=== PATIENT | male | born 1990 | race Caucasian/White ===

== ENCOUNTER 2017-04-10 16:39 | Emergency (ER) | payer OTHER ==
[2017-04-10] MEDS ORDERED: SODIUM CHLORIDE 0.9% 1,000 ML IV STA (17:44)
--- NOTE | 2017-04-10 17:52 | ED ---
General Adult HPI - General Chief complaint: Neuro Symptoms/Deficit Stated complaint: Tingling in face, arm, hand. SOB Time Seen by Provider: 04/10/17 17:14 Source: patient, family, RN notes reviewed Mode of arrival: wheelchair Limitations: no limitations - History of Present Illness Initial comments: Chief complaint and history of present illness this is a healthy 26-year-old male who was finishing a delivery when he started feeling hot with sweats slightly short of breath and started having tingling around his lips and muscle contractions in left hand. Patient also describes discomfort to the left flank around toward the right lower abdomen. Denies any change in urine denies ever having had a kidney stone the past. But this was going on the same time that he had cold sweats and tingling to his lips and hands Patient's feeling better at this time. Denies ever having had anxiety or panic attacks in the past has not think he has any issues that might cause it. - Related Data Home Medications Medication Instructions Recorded Confirmed No Known Home Medications [No 08/12/16 04/10/17 Known Home Medications] Allergies Allergy/AdvReac Type Severity Reaction Status Date / Time No Known Allergies Allergy Verified 04/10/17 17:17 Review of Systems ROS Statement: Those systems with pertinent positive or pertinent negative responses have been documented in the HPI. Review of systems no headache or visual acuity changes no chest pain or shortness of breath this time he still has mild discomfort in the left lower quadrant. No nausea no vomiting. No sweats this time no chest pain or shortness of breath. No neuro deficits. All systems are reviewed. Past medical problems none surgeries none. Family history no sudden . He denies any ALLERGIES nonsmoker drinks alcohol rarely socially. Been on the job for 4 years nothing needs strenuous. ROS Other: All systems not noted in ROS Statement are negative. Past Medical History Past Medical History: No Reported History History of Any Multi-Drug Resistant Organisms: None Reported Past Surgical History: No Surgical Hx Reported Past Psychological History: No Psychological Hx Reported Smoking Status: Never smoker Past Alcohol Use History: Occasional Past Drug Use History: None Reported General Exam - General Exam Comments Initial Comments: General: The patient is awake and alert, in no distress, and does not appear acutely ill. Patient had an episode of being sweaty and discomfort to his left flank to left lower quadrant. Also short episode of hyperventilation with tingling around his lips and hands. Eye: Pupils are equal, round and reactive to light, extra-ocular movements are intact ; there is normal conjunctiva bilaterally. No signs of icterus. Ears, nose, mouth and throat: There are moist mucous membranes and no oral lesions. Neck: The neck is supple, there is no tenderness . Cardiovascular: There is a regular rate and rhythm. No murmur, rub or gallop is appreciated. Respiratory: Lungs are clear to auscultation, respirations are non-labored, breath sounds are equal. No wheezes, stridor, rales, or rhonchi. Gastrointestinal: Soft, non-distended, non-tender abdomen without masses or organomegaly noted. There is no rebound or guarding present. No CVA tenderness. Bowel sounds are unremarkable. Back: There is no tenderness to palpation in the midline. There is no obvious deformity. No rashes noted. No pain with kidney punch is Musculoskeletal: Normal ROM, no tenderness, There is no pedal edema. There is no calf tenderness or swelling. Sensation intact. Pulses equal bilaterally 2+. Neurological: No neuro deficits Skin: Skin is warm and dry and no rashes or lesions are noted. Limitations: no limitations Course Vital Signs 04/10/17 04/10/17 04/10/17 16:47 17:17 18:54 Temperature 96.9 F L 96.8 F L 97.8 F Pulse Rate 71 65 60 Respiratory 16 18 17 Rate Blood Pressure 132/66 150/74 139/74 O2 Sat by Pulse 100 99 100 Oximetry EKG Findings - EKG Comments: EKG Findings:: EKG was done and reviewed at 1803 showing normal sinus rhythm no acute ST elevation no ectopy no ischemic changes. Rate 63 VT interval is 144 QRS [address] QT [address] Marie Medical Decision Making - Medical Decision Making labs show a white count of 8.1 hemoglobin 15.8 hematocrit of 46, potassium 3.8 BUN 15 creatinine 0.85 a GFR greater than 60. Urine clean no signs of blood or infection. Chest x-ray is done AP and lateral view and reviewed by radiologist his impression is heart and mediastinum are normal. Lungs are clear. Diaphragm is normal. Bony thorax appears normal. Impression normal chest. As read by Dr. David We discussed anxiety and panic attacks and hyperventilation syndrome. Chest panic and anxiety. The patient feels good now nono pain no shortness of breath neurologically intact. We discharged home to with his difficulty another. Advised to follow-up with his family physician in his town. Return emergency room as needed - Lab Data Result diagrams: 04/10/17 18:10 04/10/17 18:10 Lab Results 04/10/17 04/10/17 04/10/17 Range/Units 18:10 18:10 18:10 WBC 8.1 (3.8-10.6) k/uL RBC 5.36 (4.30-5.90) m/uL Hgb 15.8 (13.0-17.5) gm/dL Hct 46.5 (39.0-53.0) % MCV 86.7 (80.0-100.0) fL MCH 29.5 (25.0-35.0) pg MCHC 34.0 (31.0-37.0) g/dL RDW 13.3 (11.5-15.5) % Plt Count 267 (150-450) k/uL Neutrophils % 70 % Lymphocytes % 21 % Monocytes % 5 % Eosinophils % 1 % Basophils % 0 % Neutrophils # 5.7 (1.3-7.7) k/uL Lymphocytes # 1.7 (1.0-4.8) k/uL Monocytes # 0.4 (0-1.0) k/uL Eosinophils # 0.1 (0-0.7) k/uL Basophils # 0.0 (0-0.2) k/uL Sodium 142 (137-145) mmol/L Potassium 3.8 (3.5-5.1) mmol/L Chloride 104 (98-107) mmol/L Carbon Dioxide 25 (22-30) mmol/L Anion Gap 13 mmol/L BUN 15 (9-20) mg/dL Creatinine 0.85 (0.66-1.25) mg/dL Est GFR (MDRD) Af Amer >60 (>60 ml/min/1.73 sqM) Est GFR (MDRD) Non-Af >60 (>60 ml/min/1.73 sqM) Glucose 91 (74-99) mg/dL Calcium 9.6 (8.4-10.2) mg/dL Total Bilirubin 0.8 (0.2-1.3) mg/dL AST 29 (17-59) U/L ALT 29 (21-72) U/L Alkaline Phosphatase 71 (38-126) U/L Troponin I <0.012 (0.000-0.034) ng/mL Total Protein 8.0 (6.3-8.2) g/dL Albumin 5.0 (3.5-5.0) g/dL Urine Color Urine Appearance (Clear) Urine pH (5.0-8.0) Ur Specific [place] (1.001-1.035) Urine Protein (Negative) Urine Glucose (UA) (Negative) Urine Ketones (Negative) Urine Blood (Negative) Urine Nitrite (Negative) Urine Bilirubin (Negative) Urine Urobilinogen (<2.0) mg/dL Ur Leukocyte Esterase (Negative) 04/10/17 Range/Units 18:10 WBC (3.8-10.6) k/uL RBC (4.30-5.90) m/uL Hgb (13.0-17.5) gm/dL Hct (39.0-53.0) % MCV (80.0-100.0) fL MCH (25.0-35.0) pg MCHC (31.0-37.0) g/dL RDW (11.5-15.5) % Plt Count (150-450) k/uL Neutrophils % % Lymphocytes % % Monocytes % % Eosinophils % % Basophils % % Neutrophils # (1.3-7.7) k/uL Lymphocytes # (1.0-4.8) k/uL Monocytes # (0-1.0) k/uL Eosinophils # (0-0.7) k/uL Basophils # (0-0.2) k/uL Sodium (137-145) mmol/L Potassium (3.5-5.1) mmol/L Chloride (98-107) mmol/L Carbon Dioxide (22-30) mmol/L Anion Gap mmol/L BUN (9-20) mg/dL Creatinine (0.66-1.25) mg/dL Est GFR (MDRD) Af Amer (>60 ml/min/1.73 sqM) Est GFR (MDRD) Non-Af (>60 ml/min/1.73 sqM) Glucose (74-99) mg/dL Calcium (8.4-10.2) mg/dL Total Bilirubin (0.2-1.3) mg/dL AST (17-59) U/L ALT (21-72) U/L Alkaline Phosphatase (38-126) U/L Troponin I (0.000-0.034) ng/mL Total Protein (6.3-8.2) g/dL Albumin (3.5-5.0) g/dL Urine Color Yellow Urine Appearance Clear (Clear) Urine pH 7.0 (5.0-8.0) Ur Specific [place] 1.023 (1.001-1.035) Urine Protein Negative (Negative) Urine Glucose (UA) Negative (Negative) Urine Ketones Negative (Negative) Urine Blood Negative (Negative) Urine Nitrite Negative (Negative) Urine Bilirubin Negative (Negative) Urine Urobilinogen <2.0 (<2.0) mg/dL Ur Leukocyte Esterase Negative (Negative) Disposition Clinical Impression: Panic anxiety syndrome Disposition: HOME SELF-CARE Condition: Good Instructions: Panic Attack (ED) Additional Instructions: Rest relax follow directions for panic attack. Follow-up with your family physician or follow-up with a physician in the community. On-call physician is Dr. Rock Moody Referrals: None,Stated [Primary Care Provider] - 1-2 days Rock Moody MD [STAFF PHYSICIAN] - 1-2 days Time of Disposition: 19:57
[2017-04-10 18:26] LABS: ALT 29 U/L (21-72); AST 29 U/L (17-59); Alkaline Phosphatase 71 U/L (38-126); Anion Gap 13 mmol/L; Appearance,Urine Clear (Clear); Basophils % (A) 0 %; Bilirubin,Urine Negative (Negative); Blood Urea Nitrogen 15 mg/dL (9-20); CH 30.8; CHCM 35.6; Calcium 9.6 mg/dL (8.4-10.2); Carbon Dioxide 25 mmol/L (22-30); Chloride 104 mmol/L (98-107); Eosinophils # (A) 0.1 k/uL (0-0.7); Eosinophils % (A) 1 %; Glucose 91 mg/dL (74-99); Glucose,Urine (UA) Negative (Negative); HCT 46.5 % (39.0-53.0); HDW 2.52; HGB 15.8 gm/dL (13.0-17.5); Ketones,Urine Negative (Negative); Leukocyte Esterase,Urine Negative (Negative); Luc # (Auto) 0.17; Luc % (Auto) 2; Lymphocytes # (A) 1.7 k/uL (1.0-4.8); Lymphocytes % (A) 21 %; MCH 29.5 pg (25.0-35.0); MCV 86.7 fL (80.0-100.0); Mean Platelet Volume 6.7; Monocytes # (A) 0.4 k/uL (0-1.0); Monocytes % (A) 5 %; Neutrophils # (A) 5.7 k/uL (1.3-7.7); Neutrophils % (A) 70 %; Nitrite,Urine Negative (Negative); Non-African American GFR(MDRD) >60 (>60 ml/min/1.73 sqM); Potassium 3.8 mmol/L (3.5-5.1); Protein,Urine Negative (Negative); RBC 5.36 m/uL (4.30-5.90); RDW 13.3 % (11.5-15.5); Sodium 142 mmol/L (137-145); Specific Gravity,Urine 1.023 (1.001-1.035); Total Bilirubin 0.8 mg/dL (0.2-1.3); UA Billing (MACRO vs. MICRO) CHEM; Urobilinogen,Urine <2.0 mg/dL (<2.0); WBC 8.1 k/uL (3.8-10.6); WBC (Perox) 7.97
--- NOTE | 2017-04-10 18:43 | XR ---
EXAMINATION TYPE: XR chest 2V DATE OF EXAM: 04/10/2017 COMPARISON: NONE HISTORY: Short of breath TECHNIQUE: Frontal and lateral views of the chest are obtained. FINDINGS: Heart and mediastinum are normal. Lungs are clear. Diaphragm is normal. Bony thorax appear s normal. IMPRESSION: Normal chest
[2017-04-10 20:08] VITALS: BP 137/61; PULSE 69; RESP 16; TEMP 97.6
== END 2017-04-10 20:08 | disposition home or self-care (01) ==
LOC: EC 16:39
DX: F41.0 Panic disorder [episodic paroxysmal anxiety] (principal); R06.02 Shortness of breath; R20.0 Anesthesia of skin
CPT/HCPCS: 36415; 71020; 80053; 81003; 84484; 85025; 93005; 96360; 99284

== ENCOUNTER 2017-06-05 06:37 | Emergency (ER) | payer SELFPAY ==
[2017-06-05] MEDS ORDERED: PROPARACAINE 0.5% OPHTH DROPS 15 ML BTL ONE (07:33)
--- NOTE | 2017-06-05 07:43 | ED ---
ENT HPI - General Chief complaint: ENT Stated complaint: Eye issue Time Seen by Provider: 06/05/17 07:00 Source: patient, RN notes reviewed Mode of arrival: ambulatory Limitations: no limitations - History of Present Illness Initial comments: This is a 27-year-old male with a benign past medical history states he had answered 190 of some irritation in his right eye he woke up this morning with a crusted shut and red in color. He denies any overt foreign body or trauma he did state he went camping over this past week and today being Sunday. He does not recall getting anything in the eye. He does not wear contact lenses he denies any blurry vision or loss of vision. Just irritation and redness and clear drainage. He's not sure since he may be underneath his upper eyelid. He voices no other complaints - Related Data Home Medications Medication Instructions Recorded Confirmed Glucosamine Sulfate 500 mg PO DAILY 06/05/17 06/05/17 Previous Rx's Medication Instructions Recorded Tobramycin [Tobrex 0.3% Ophth Soln] 2 drop RIGHT EYE Q6HR #5 ml 06/05/17 Allergies Allergy/AdvReac Type Severity Reaction Status Date / Time No Known Allergies Allergy Verified 06/05/17 07:33 Review of Systems ROS Statement: Those systems with pertinent positive or pertinent negative responses have been documented in the HPI. ROS Other: All systems not noted in ROS Statement are negative. Past Medical History Past Medical History: No Reported History History of Any Multi-Drug Resistant Organisms: None Reported Past Surgical History: No Surgical Hx Reported Past Psychological History: No Psychological Hx Reported Smoking Status: Never smoker Past Alcohol Use History: Occasional Past Drug Use History: None Reported General Exam - General Exam Comments Initial Comments: This is a well-developed well-nourished awake alert oriented 3 male Limitations: no limitations General appearance: alert, in no apparent distress Head exam: Present: atraumatic, normocephalic, normal inspection Eye exam: Present: PERRL, EOMI, conjunctival injection (Conjunctival injection and edema eversion of the eyelids on gross examination reveals no evidence of foreign body just some edema. Left eye is within normal limits.) Pupils: Present: normal accommodation ENT exam: Present: normal exam, mucous membranes moist Neck exam: Present: normal inspection. Absent: tenderness, meningismus, lymphadenopathy Respiratory exam: Absent: respiratory distress Extremities exam: Present: normal inspection, full ROM, normal capillary refill. Absent: tenderness, pedal edema, joint swelling, calf tenderness Neurological exam: Present: alert, oriented X3, CN II-XII intact Psychiatric exam: Present: normal affect, normal mood Skin exam: Present: warm, dry, intact, normal color. Absent: rash Course Vital Signs 06/05/17 06:41 Temperature 97.8 F Pulse Rate 71 Respiratory 16 Rate Blood Pressure 116/69 O2 Sat by Pulse 99 Oximetry Procedures - Procedures Initial comment: I did instill proparacaine drops in the patient's right eye and then later instilled fluorescein. I did examine the eye with a Wood lamp. Examination reveals increased uptake over the conjunctiva the cornea is clear U version the eyelids reveal no evidence of any foreign bodies either upper or lower. No other abnormality seen. Medical Decision Making - Medical Decision Making The patient presentation is consistent with keratoconjunctivitis. He'll be placed on appropriate antibiotic drops he does not wear contact lenses he was cautioned about bright lights. He is follow-up with his doctor and return when necessary Disposition Clinical Impression: Acute conjunctivitis, right eye Disposition: HOME SELF-CARE Condition: Good Instructions: Conjunctivitis (ED) Prescriptions: Tobramycin [Tobrex 0.3% Ophth Soln] 2 drop RIGHT EYE Q6HR #5 ml Referrals: None,Stated [Primary Care Provider] - 1-2 days
[2017-06-05] MEDS ORDERED: PROPARACAINE 0.5% OPHTH DROPS 15 ML BTL RIGHT EYE STA (07:49)
[2017-06-05 08:22] VITALS: BP 136/72; PULSE 62; RESP 20; TEMP 98.7
== END 2017-06-05 08:22 | disposition home or self-care (01) ==
LOC: EC 06:37
DX: H10.31 Unspecified acute conjunctivitis, right eye (principal); Z79.899 Other long term (current) drug therapy
CPT/HCPCS: 99283

== ENCOUNTER 2018-02-02 17:03 | Emergency (ER) | payer OTHER ==
[2018-02-02 17:10] VITALS: RESP 16
--- NOTE | 2018-02-02 17:32 | ED ---
General Adult HPI - General Chief complaint: Dizziness Stated complaint: MYRIAM Time Seen by Provider: 02/02/18 17:07 Source: patient Mode of arrival: EMS Limitations: no limitations - History of Present Illness Initial comments: 27-year-old male patient presents to the emergency department today for evaluation after what he describes as an "anxiety attack". Patient states that approximately an hour prior to arrival he was driving when he had sudden onset of shortness of breath. Patient states that he was breathing heavy and fast. States that during the breathing episode the right side of his face her to become tingly, his left arm is tingling, and his legs were tingling. Patient states he has had a similar episode to this a couple of years ago. States he was diagnosed with anxiety at that point. Patient states he does not have much problems with this. States this episode came out of nowhere. He denies any recent stressors or feelings of anxiousness. Patient states he currently is feeling normal. He denies any shortness of breath, chest pain, dizziness, weakness, headache, blurred vision, or double vision. Patient denies any recent rash, fever, chills, abdominal pain, nausea, vomiting, diarrhea, constipation, back pain, hematuria, dysuria, urinary urgency, urinary frequency, headache, visual changes, or any other complaints. Patient states he occasionally smokes marijuana and drinks alcohol but denies any use of these substances today. - Related Data Home Medications Medication Instructions Recorded Confirmed Glucosamine Sulfate 500 mg PO DAILY 06/05/17 06/05/17 Previous Rx's Medication Instructions Recorded Tobramycin [Tobrex 0.3% Ophth Soln] 2 drop RIGHT EYE Q6HR #5 ml 06/05/17 Allergies Allergy/AdvReac Type Severity Reaction Status Date / Time No Known Allergies Allergy Verified 02/02/18 17:09 Review of Systems ROS Statement: Those systems with pertinent positive or pertinent negative responses have been documented in the HPI. ROS Other: All systems not noted in ROS Statement are negative. Past Medical History Past Medical History: No Reported History History of Any Multi-Drug Resistant Organisms: None Reported Past Surgical History: No Surgical Hx Reported Past Psychological History: No Psychological Hx Reported Smoking Status: Never smoker Past Alcohol Use History: Occasional Past Drug Use History: Marijuana General Exam Limitations: no limitations General appearance: alert, in no apparent distress, other (This is a well- developed, well-nourished adult male patient in no acute distress. Vital signs upon presentation are temperature 96.9F, pulse 69, respirations 16, blood pressure 125/73, pulse ox 100% on room air.) Eye exam: Present: normal appearance, PERRL, EOMI. Absent: scleral icterus, conjunctival injection, periorbital swelling ENT exam: Present: normal exam, normal oropharynx, mucous membranes moist Respiratory exam: Present: normal lung sounds bilaterally. Absent: respiratory distress, wheezes, rales, rhonchi, stridor Cardiovascular Exam: Present: regular rate, normal rhythm, normal heart sounds. Absent: systolic murmur, diastolic murmur, rubs, gallop, clicks GI/Abdominal exam: Present: soft, normal bowel sounds. Absent: distended, tenderness, guarding, rebound, rigid Neurological exam: Present: alert, oriented X3, CN II-XII intact Psychiatric exam: Present: normal affect, normal mood Skin exam: Present: warm, dry, intact, normal color. Absent: rash Course Vital Signs 02/02/18 02/02/18 17:05 18:11 Temperature 96.9 F L 97.9 F Pulse Rate 69 78 Respiratory 16 16 Rate Blood Pressure 125/73 126/68 O2 Sat by Pulse 100 99 Oximetry EKG Findings - EKG Comments: EKG Findings:: EKG obtained at 1743 shows normal sinus rhythm with a ventricular rate of 61, MO interval 138, QRS duration 92, QT 404, QTC 406. No evidence of ST elevation or depression. No evidence of ectopy. Medical Decision Making - Medical Decision Making 27-year-old male patient presented to the emergency department today for evaluation of what sounded like hyperventilation with left hand and arm tingling and hand contractions as well as bilateral lower extremity tingling and right facial tingling. Upon arrival to the emergency department all symptoms are resolved. Patient states he is currently feeling normal. Did perform EKG which showed no acute abnormalities. Chest x-ray showed no acute cardiopulmonary process. Patient was recently been diagnosed with panic attacks did have a similar episode once in the past. Patient does feel comfortable being discharged at this time. He was given that Dr. Tucker to follow-up outpatient for primary care. He is instructed to return here immediately for any new, worsening, or concerning symptoms. Return parameters discussed in detail. He verbalizes understanding and agrees this plan. - Radiology Data Radiology results: report reviewed, image reviewed Two-view x-ray of the chest shows no focal airspace opacity, pleural effusion, or pneumothorax seen. The cardiac silhouette size is within normal limits. The osseous structures are intact. Impression by Dr. Arias shows no acute cardiopulmonary process. Disposition Clinical Impression: Shortness of breath, Anxiety Disposition: HOME SELF-CARE Condition: Good Instructions: Dyspnea (ED), Anxiety (ED) Additional Instructions: Follow-up with the primary care physician as soon as possible. Return here immediately for any new, worsening, or concerning symptoms. Referrals: Vivien Tucker MD [STAFF PHYSICIAN] - 1-2 days Time of Disposition: 17:55
--- NOTE | 2018-02-02 17:48 | XR ---
EXAMINATION TYPE: XR chest 2V DATE OF EXAM: 02/02/2018 COMPARISON: Prior chest 04/10/2017 HISTORY: Difficulty breathing TECHNIQUE: Frontal and lateral views of the chest are obtained on 3 images. FINDINGS: There is no focal air space opacity, pleural effusion, or pneumothorax seen. The cardiac silhouette size is within normal limits. The osseous structures are intact. IMPRESSION: No acute cardiopulmonary process.
[2018-02-02 18:11] VITALS: BP 126/68; PULSE 78; TEMP 97.9
== END 2018-02-02 18:11 | disposition home or self-care (01) ==
LOC: EC 17:03
DX: F41.9 Anxiety disorder, unspecified (principal); R06.02 Shortness of breath; F12.90 Cannabis use, unspecified, uncomplicated; Z79.899 Other long term (current) drug therapy
CPT/HCPCS: 71046; 93005; 99284

== ENCOUNTER 2018-04-08 13:57 | Observation (INO) | payer OTHER ==
[2018-04-08] MEDS ORDERED: SODIUM CHLORIDE 0.9% 1,000 ML IV STA (14:42)
--- NOTE | 2018-04-08 14:57 | XR ---
EXAMINATION TYPE: XR KUB DATE OF EXAM: 04/08/2018 CLINICAL DATA: 27-year-old male with abdominal pain, [facility] COMPARISON: None FINDINGS: Lung bases are clear. No evidence for free intraperitoneal air. No dilated small bowel or air-fluid levels. Scattered air and stool seen throughout the colon extendi ng distally into the rectum. Very mild scattered stool Calcification in the lower left side of the pelvis likely phlebolith. IMPRESSION: No evidence of bowel obstruction or free intraperitoneal air.
--- NOTE | 2018-04-08 14:58 | ED ---
General Adult HPI - General Chief complaint: Abdominal Pain Stated complaint: Abd Pain Time Seen by Provider: 04/08/18 14:21 Source: patient, RN notes reviewed Mode of arrival: ambulatory Limitations: no limitations - History of Present Illness Initial comments: Patient 27-year-old male presents to the emergency room today with chief complaint of right-sided abdominal pain over the last 2-3 days. Patient describes it as sharp constant pain. He states he was thought could be some constipation has taken a laxative percent. No bowel movement and no relief of the pain and symptoms. Patient denies any other complaints. Patient denies any recent fever, chills, shortness of breath, chest pain, back pain, numbness or tingling, dysuria or hematuria, constipation or diarrhea, headaches or visual changes, or any other complaints. - Related Data Home Medications Medication Instructions Recorded Confirmed Sennosides [Ex-Lax] 15 mg PO HS PRN 04/08/18 04/08/18 Allergies Allergy/AdvReac Type Severity Reaction Status Date / Time No Known Allergies Allergy Verified 04/08/18 14:17 Review of Systems ROS Statement: Those systems with pertinent positive or pertinent negative responses have been documented in the HPI. ROS Other: All systems not noted in ROS Statement are negative. Past Medical History Past Medical History: No Reported History History of Any Multi-Drug Resistant Organisms: None Reported Past Surgical History: No Surgical Hx Reported Past Psychological History: No Psychological Hx Reported Smoking Status: Never smoker Past Alcohol Use History: Occasional Past Drug Use History: Marijuana General Exam - General Exam Comments Initial Comments: General: The patient is awake and alert, in no distress, and does not appear acutely ill. Eye: Pupils are equal, round and reactive to light, extra-ocular movements are intact. No nystagmus. There is normal conjunctiva bilaterally. No signs of icterus. Ears, nose, mouth and throat: There are moist mucous membranes and no oral lesions. Neck: The neck is supple, there is no tenderness or JVD. Cardiovascular: There is a regular rate and rhythm. No murmur, rub or gallop is appreciated. Respiratory: Lungs are clear to auscultation, respirations are non-labored, breath sounds are equal. No wheezes, stridor, rales, or rhonchi. Gastrointestinal: Abdomen soft on palpation. Patient does have tenderness right lower quadrant. No rebound tenderness, guarding, CVA tenderness. Musculoskeletal: Normal ROM, no tenderness. Strength 5/5. Sensation intact. Pulses equal bilaterally 2+. Neurological: A&O x 3. CN II-XII intact, There are no obvious motor or sensory deficits. Coordination appears grossly intact. Speech is normal. Skin: Skin is warm and dry and no rashes or lesions are noted. Psychiatric: Cooperative, appropriate mood & affect, normal judgment. Limitations: no limitations Course Vital Signs 04/08/18 04/08/18 14:09 16:21 Temperature 97.6 F Pulse Rate 68 65 Respiratory 20 18 Rate Blood Pressure 114/74 104/56 O2 Sat by Pulse 98 99 Oximetry Medical Decision Making - Medical Decision Making Patient discussed with attending physician Dr. Mcnulty. Patient's CT of the abdomen and pelvis does reveal evidence for an early appendicitis. Case discussed with surgeon station mechanic helper Dr. Jauregui who recommends starting patient on Rocephin and Flagyl and will admit the patient with plans to go to the OR. - Lab Data Result diagrams: 04/08/18 14:52 04/08/18 14:52 Lab Results 04/08/18 04/08/18 04/08/18 Range/Units 14:52 14:52 14:52 WBC 6.5 (3.8-10.6) k/uL RBC 4.85 (4.30-5.90) m/uL Hgb 14.3 (13.0-17.5) gm/dL Hct 40.8 (39.0-53.0) % MCV 84.1 (80.0-100.0) fL MCH 29.6 (25.0-35.0) pg MCHC 35.2 (31.0-37.0) g/dL RDW 13.1 (11.5-15.5) % Plt Count 219 (150-450) k/uL Neutrophils % 59 % Lymphocytes % 31 % Monocytes % 5 % Eosinophils % 3 % Basophils % 0 % Neutrophils # 3.8 (1.3-7.7) k/uL Lymphocytes # 2.0 (1.0-4.8) k/uL Monocytes # 0.3 (0-1.0) k/uL Eosinophils # 0.2 (0-0.7) k/uL Basophils # 0.0 (0-0.2) k/uL Sodium 142 (137-145) mmol/L Potassium 4.3 (3.5-5.1) mmol/L Chloride 103 (98-107) mmol/L Carbon Dioxide 26 (22-30) mmol/L Anion Gap 13 mmol/L BUN 17 (9-20) mg/dL Creatinine 0.85 (0.66-1.25) mg/dL Est GFR (CKD-EPI)AfAm >90 (>60 ml/min/1.73 sqM) Est GFR (CKD-EPI)NonAf >90 (>60 ml/min/1.73 sqM) Glucose 90 (74-99) mg/dL Plasma Lactic Acid Bhargav <0.5 L (0.7-2.0) mmol/L Calcium 9.1 (8.4-10.2) mg/dL Total Bilirubin 0.8 (0.2-1.3) mg/dL AST 21 (17-59) U/L ALT 31 (21-72) U/L Alkaline Phosphatase 50 (38-126) U/L Total Protein 7.0 (6.3-8.2) g/dL Albumin 4.5 (3.5-5.0) g/dL Amylase 35 (30-110) U/L Lipase 32 (23-300) U/L Urine Color Urine Appearance (Clear) Urine pH (5.0-8.0) Ur Specific [place] (1.001-1.035) Urine Protein (Negative) Urine Glucose (UA) (Negative) Urine Ketones (Negative) Urine Blood (Negative) Urine Nitrite (Negative) Urine Bilirubin (Negative) Urine Urobilinogen (<2.0) mg/dL Ur Leukocyte Esterase (Negative) Urine RBC (0-5) /hpf Urine WBC (0-5) /hpf Ur Squamous Epith Cells (0-4) /hpf 04/08/18 Range/Units 14:52 WBC (3.8-10.6) k/uL RBC (4.30-5.90) m/uL Hgb (13.0-17.5) gm/dL Hct (39.0-53.0) % MCV (80.0-100.0) fL MCH (25.0-35.0) pg MCHC (31.0-37.0) g/dL RDW (11.5-15.5) % Plt Count (150-450) k/uL Neutrophils % % Lymphocytes % % Monocytes % % Eosinophils % % Basophils % % Neutrophils # (1.3-7.7) k/uL Lymphocytes # (1.0-4.8) k/uL Monocytes # (0-1.0) k/uL Eosinophils # (0-0.7) k/uL Basophils # (0-0.2) k/uL Sodium (137-145) mmol/L Potassium (3.5-5.1) mmol/L Chloride (98-107) mmol/L Carbon Dioxide (22-30) mmol/L Anion Gap mmol/L BUN (9-20) mg/dL Creatinine (0.66-1.25) mg/dL Est GFR (CKD-EPI)AfAm (>60 ml/min/1.73 sqM) Est GFR (CKD-EPI)NonAf (>60 ml/min/1.73 sqM) Glucose (74-99) mg/dL Plasma Lactic Acid Bhargav (0.7-2.0) mmol/L Calcium (8.4-10.2) mg/dL Total Bilirubin (0.2-1.3) mg/dL AST (17-59) U/L ALT (21-72) U/L Alkaline Phosphatase (38-126) U/L Total Protein (6.3-8.2) g/dL Albumin (3.5-5.0) g/dL Amylase (30-110) U/L Lipase (23-300) U/L Urine Color Yellow Urine Appearance Clear (Clear) Urine pH 5.5 (5.0-8.0) Ur Specific [place] 1.025 (1.001-1.035) Urine Protein Negative (Negative) Urine Glucose (UA) Negative (Negative) Urine Ketones Negative (Negative) Urine Blood Negative (Negative) Urine Nitrite Negative (Negative) Urine Bilirubin Negative (Negative) Urine Urobilinogen <2.0 (<2.0) mg/dL Ur Leukocyte Esterase Moderate H (Negative) Urine RBC 2 (0-5) /hpf Urine WBC 8 H (0-5) /hpf Ur Squamous Epith Cells 1 (0-4) /hpf Disposition Clinical Impression: Acute appendicitis Disposition: ADMITTED IP TO THIS [facility] Condition: Stable Is patient prescribed a controlled substance at d/c from ED?: No Referrals: None,Stated [Primary Care Provider] - 1-2 days Time of Disposition: 16:35
[2018-04-08 15:26] LABS: Basophils % (A) 0 %; Eosinophils # (A) 0.2 k/uL (0-0.7); Eosinophils % (A) 3 %; HCT 40.8 % (39.0-53.0); HGB 14.3 gm/dL (13.0-17.5); Lymphocytes % (A) 31 %; MCH 29.6 pg (25.0-35.0); MCHC 35.2 g/dL (31.0-37.0); MCV 84.1 fL (80.0-100.0); Mean Platelet Volume 6.7; Monocytes # (A) 0.3 k/uL (0-1.0); Monocytes % (A) 5 %; Neutrophils # (A) 3.8 k/uL (1.3-7.7); Neutrophils % (A) 59 %; Platelet Count 219 k/uL (150-450); RBC 4.85 m/uL (4.30-5.90); RDW 13.1 % (11.5-15.5); WBC 6.5 k/uL (3.8-10.6)
[2018-04-08 15:28] LABS: ALT 31 U/L (21-72); AST 21 U/L (17-59); Albumin 4.5 g/dL (3.5-5.0); Alkaline Phosphatase 50 U/L (38-126); Amylase 35 U/L (30-110); Anion Gap 13 mmol/L; Blood Urea Nitrogen 17 mg/dL (9-20); Calcium 9.1 mg/dL (8.4-10.2); Carbon Dioxide 26 mmol/L (22-30); Chloride 103 mmol/L (98-107); Glucose 90 mg/dL (74-99); Lipase 32 U/L (23-300); Potassium 4.3 mmol/L (3.5-5.1); Sodium 142 mmol/L (137-145); Total Bilirubin 0.8 mg/dL (0.2-1.3)
[2018-04-08 15:30] LABS: Appearance,Urine Clear (Clear); Bilirubin,Urine Negative (Negative); Blood,Urine Negative (Negative); Color,Urine Yellow; Glucose,Urine (UA) Negative (Negative); Ketones,Urine Negative (Negative); Leukocyte Esterase,Urine Moderate (Negative); Nitrite,Urine Negative (Negative); PH, Urine 5.5 (5.0-8.0); Protein,Urine Negative (Negative); RBC,Urine 2 /hpf (0-5); Specific Gravity,Urine 1.025 (1.001-1.035); Squamous Epithelial Cell,Urine 1 /hpf (0-4); Urobilinogen,Urine <2.0 mg/dL (<2.0); WBC,Urine 8 /hpf (0-5)
--- NOTE | 2018-04-08 16:14 | CT ---
EXAMINATION TYPE: CT abdomen pelvis w con DATE OF EXAM: 04/08/2018 COMPARISON: NONE HISTORY: Patient complains of RLQ pain. CT DLP: 544.4 mGycm, Automated Exposure Control for Dose Reduction was Utilized. CONTRAST: CT scan of the abdomen and pelvis is performed without oral but with IV Contrast, patient injected wi th 100 mL of Isovue 300. FINDINGS: LUNG BASES: No significant abnormality is appreciated. LIVER/GB: No significant abnormality is appreciated. PANCREAS: No significant abnormality is seen. SPLEEN: No significant abnormality is seen. ADRENALS: No significant abnormality is seen. KIDNEYS: No significant abnormality is seen. BOWEL: Appendix is well seen extending inferiorly from base of cecum axial images 61 through 68 and c oronal images 31 through 41. Appendix is mildly dilated up to 10 mm with mild haziness or fat strandi ng in the surrounding fat. CT findings are suggestive of a mild or early acute appendicitis. No well- formed fluid collection or abscess is seen. No pneumoperitoneum is noted. No suspicious small or large bowel dilatation is present. PROSTATE/SEMINAL VESICLES: Left pelvic phlebolith is seen. LYMPH NODES: No greater than 1cm abdominal or pelvic lymph nodes are appreciated. OSSEOUS STRUCTURES: No significant abnormality is seen. OTHER: No significant additional abnormality is seen. IMPRESSION: CT findings are suggestive of a mild or early acute appendicitis as detailed above. Surgi augusto consultation advised. Case discussed with ordering emergency care physician welder assistant via telephone at time of dictation.
[2018-04-08] MEDS ORDERED: metroNIDAZOLE-NS PMX 500 MG in SALINE 1 100ML.BAG IVPB STA (16:33)
[2018-04-08] MEDS ORDERED: cefTRIAXone 1,000 MG VIAL (IM USE) IM STA (16:33)
[2018-04-08] MEDS ORDERED: NALOXONE 0.4 MG/ML 1 ML VIAL IV PRN (16:35)
[2018-04-08] MEDS ORDERED: ONDANSETRON 4 MG/2 ML VIAL IVP PRN (16:35)
[2018-04-08] MEDS ORDERED: SODIUM CHLORIDE 0.9% 1,000 ML IV ONE (16:35)
[2018-04-08] MEDS ORDERED: MORPHINE SULFATE 2 MG/ML SYRINGE IV PRN (16:35)
[2018-04-08] MEDS ORDERED: cefTRIAXone IN SWFI 1,000 MG/10 ML SYRINGE IVP STA (17:09)
[2018-04-08] MEDS ORDERED: SUCCINYLCHOLINE CHLORIDE 100 MG/5 ML SYR IV ONE (17:40)
[2018-04-08] MEDS ORDERED: fentaNYL (PF) 50 MCG/ML 2 ML AMP ONE (17:40)
[2018-04-08] MEDS ORDERED: KETOROLAC 30 MG/ML 1 ML VIAL ONE (17:40)
[2018-04-08] MEDS ORDERED: LIDOCAINE 1% INJ 10MG/ML (20 ML MDV) ONE (17:40)
[2018-04-08] MEDS ORDERED: LACTATED RINGERS 1,000 ML IV ONE (17:40)
[2018-04-08] MEDS ORDERED: NEOSTIGMINE 1 MG/ML 10 ML VIAL ONE (17:40)
[2018-04-08] MEDS ORDERED: ROCURONIUM BROMIDE 10 MG/ML 10 ML VIAL IV ONE (17:40)
[2018-04-08] MEDS ORDERED: MIDAZOLAM 2 MG/2 ML VIAL ONE (17:40)
[2018-04-08] MEDS ORDERED: GLYCOPYRROLATE 0.2 MG/ML 2 ML VIAL ONE (17:40)
[2018-04-08] MEDS ORDERED: PROPOFOL 10 MG/ML 20 ML VIAL IV ONE (17:40)
--- NOTE | 2018-04-08 17:40 | P.GSHP ---
History of Present Illness H&P Date: 04/08/18 27-year-old male presents to the emergency department with complaints of right lower quadrant pain. He states that the pain began 2 days ago and progressively worsened. He states he took some laxatives and that helped him have a bowel movement and relieved some of the pain. He states since the pain continued he decided to come to the emergency department. He denies any nausea and vomiting. He does admit to a lack of appetite. He states that he has not had any fevers but does feel that he has been more sweaty than usual. He denies any chills. He states he has never had this type of pain previously. CT of the abdomen and pelvis was performed in the emergency department and acute appendicitis was found. Currently he does not have a leukocytosis. - Review of Systems All systems: negative Past Medical History Past Medical History: No Reported History History of Any Multi-Drug Resistant Organisms: None Reported Past Surgical History: No Surgical Hx Reported Past Psychological History: No Psychological Hx Reported Smoking Status: Never smoker Past Alcohol Use History: Occasional Past Drug Use History: Marijuana Medications and Allergies Home Medications Medication Instructions Recorded Confirmed Type Sennosides [Ex-Lax] 15 mg PO HS PRN 04/08/18 04/08/18 History Allergies Allergy/AdvReac Type Severity Reaction Status Date / Time No Known Allergies Allergy Verified 04/08/18 14:17 Surgical - Exam Osteopathic Statement: *. No significant issues noted on an osteopathic structural exam other than those noted in the History and Physical/Consult. Vital Signs Temp Pulse Resp BP Pulse Ox 97.6 F 68 20 114/74 98 04/08/18 14:09 04/08/18 14:09 04/08/18 14:09 04/08/18 14:09 04/08/18 14:09 - General well nourished, no distress - ENT normal mucosa, no hearing loss - Neck trachea midline - Respiratory No difficulty with respiration - Abdomen soft, tender to palpation in RLQ, nondistended, no rebound, no guarding - Neurologic normal sensation - Musculoskeletal normal gait - Psychiatric oriented to time, oriented to person, oriented to place Results - Labs 04/08/18 14:52 04/08/18 14:52 Abnormal Lab Results - Last 24 Hours (Table) 04/08/18 04/08/18 Range/Units 14:52 14:52 Plasma Lactic Acid Bhargav <0.5 L (0.7-2.0) mmol/L Ur Leukocyte Esterase Moderate H (Negative) Urine WBC 8 H (0-5) /hpf Diabetes panel 04/08/18 Range/Units 14:52 Sodium 142 (137-145) mmol/L Potassium 4.3 (3.5-5.1) mmol/L Chloride 103 (98-107) mmol/L Carbon Dioxide 26 (22-30) mmol/L BUN 17 (9-20) mg/dL Creatinine 0.85 (0.66-1.25) mg/dL Glucose 90 (74-99) mg/dL Calcium 9.1 (8.4-10.2) mg/dL AST 21 (17-59) U/L ALT 31 (21-72) U/L Alkaline Phosphatase 50 (38-126) U/L Total Protein 7.0 (6.3-8.2) g/dL Albumin 4.5 (3.5-5.0) g/dL Calcium panel 04/08/18 Range/Units 14:52 Calcium 9.1 (8.4-10.2) mg/dL Albumin 4.5 (3.5-5.0) g/dL Pituitary panel 04/08/18 Range/Units 14:52 Sodium 142 (137-145) mmol/L Potassium 4.3 (3.5-5.1) mmol/L Chloride 103 (98-107) mmol/L Carbon Dioxide 26 (22-30) mmol/L BUN 17 (9-20) mg/dL Creatinine 0.85 (0.66-1.25) mg/dL Glucose 90 (74-99) mg/dL Calcium 9.1 (8.4-10.2) mg/dL Adrenal panel 04/08/18 Range/Units 14:52 Sodium 142 (137-145) mmol/L Potassium 4.3 (3.5-5.1) mmol/L Chloride 103 (98-107) mmol/L Carbon Dioxide 26 (22-30) mmol/L BUN 17 (9-20) mg/dL Creatinine 0.85 (0.66-1.25) mg/dL Glucose 90 (74-99) mg/dL Calcium 9.1 (8.4-10.2) mg/dL Total Bilirubin 0.8 (0.2-1.3) mg/dL AST 21 (17-59) U/L ALT 31 (21-72) U/L Alkaline Phosphatase 50 (38-126) U/L Total Protein 7.0 (6.3-8.2) g/dL Albumin 4.5 (3.5-5.0) g/dL - Imaging CT scan - abdomen: report reviewed, image reviewed (CT of the abdomen and pelvis was reviewed. There is thickening and dilation of the appendix with some surrounding fat stranding, acute appendicitis) CT scan - pelvis: report reviewed, image reviewed Assessment and Plan (1) Acute appendicitis Narrative/Plan: 27-year-old male with acute appendicitis Begin antibiotics Keep nothing by mouth IV fluids Plan for operating room for laparoscopic appendectomy Current Visit: Yes Status: Acute Code(s): K35.80 - UNSPECIFIED ACUTE APPENDICITIS SNOMED Code(s): 98564638
[2018-04-08] MEDS ORDERED: SODIUM CHLORIDE 0.9% 50 ML with ceFAZolin 2,000 MG IV ONE ×2 (17:50)
[2018-04-08] MEDS ORDERED: ROPIVACAINE 5 MG/ML 30 ML VIAL MISCELLANE ONE (17:55)
[2018-04-08] MEDS ORDERED: HYDROcodone/APAP 5-325MG 1 EACH TAB PO PRN (18:27)
--- NOTE | 2018-04-08 18:32 | P.OP ---
Date of Procedure: 04/08/18 Preoperative Diagnosis: Acute appendicitis Postoperative Diagnosis: Acute appendicitis Procedure(s) Performed: Laparoscopic appendectomy Anesthesia: JANI Surgeon: Beny Jauregui Pathology: other (Appendix) Condition: stable Disposition: floor Indications for Procedure: 27-year-old male presented to the emergency department with complaints of 2 days of right lower quadrant pain. On workup he was found to have acute appendicitis on CT of the abdomen and pelvis. Secondary to this, laparoscopic appendectomy was decided to be performed. The patient was explained the risks, benefits and alternatives to the procedure and provided consent prior to entering the operating suite. Operative Findings: Inflamed appendix, thickened Description of Procedure: The patient was brought into the operating suite and placed in supine position on the operating table. Sedation was provided by anesthesia and the patient underwent endotracheal intubation. The patient was then prepped and draped in regular sterile fashion. Local anesthetic was administered and a super umbilical incision was made dissection was carried to the fascia the fascia was incised and the abdomen was entered. A 12 mm trocar was then placed and pneumoperitoneum was achieved. The patient was then placed in appropriate positioning of the appendix was clearly visualized. 2 additional 5 mm ports were placed. One was placed in the suprapubic region and one was placed in the left lower quadrant. The appendix was then grasped and elevated. Blunt dissection was used to free the appendix from the surrounding structures. A [place] dissector was then used to create a window between the appendix and the mesoappendix. A LigaSure device was then used to ligate the mesoappendix. The base of the appendix was then clearly visualized. A stapler device was then fired across the base of the appendix area the appendix was then placed in an Endo Catch bag and removed from the abdomen. Irrigation was then used in the right lower quadrant. Hemostasis was noted to be maintained. At this point all ports were removed from the abdomen and pneumoperitoneum was released. The supraumbilical fascial incision site was closed using figure-of- eight 0 Vicryl sutures. All skin incisions were then closed with 4-0 Vicryl subcuticular sutures. The patient was then awakened in the operating suite and taken to postanesthesia care unit in stable condition.
[2018-04-08] MEDS: KETOROLAC 30 MG/ML 1 ML VIAL IVP SCH ×2 (20:05→23:39)
[2018-04-08 22:32] VITALS: RESP 16
[2018-04-08] MEDS: HEPARIN SODIUM,PORCINE 5,000 UNIT/ML 1 ML VIAL SQ SCH (23:38)
[2018-04-08] MEDS: PIPERACILLIN-TAZOBACTAM 3.375 GM in DEXTROSE/WATER 1 50ML.BAG IVPB SCH (23:39)
[2018-04-08] MEDS: SODIUM CHLORIDE 0.9% 1,000 ML IV SCH (23:40)
[2018-04-08 23:57] VITALS: BMI 26.6
[2018-04-09] MEDS: KETOROLAC 30 MG/ML 1 ML VIAL IVP SCH (05:35)
[2018-04-09 07:22] LABS: Basophils % (A) 0 %; Eosinophils # (A) 0.2 k/uL (0-0.7); Eosinophils % (A) 3 %; HCT 39.4 % (39.0-53.0); HGB 13.8 gm/dL (13.0-17.5); Lymphocytes % (A) 26 %; MCH 29.7 pg (25.0-35.0); MCV 84.7 fL (80.0-100.0); Mean Platelet Volume 6.2; Monocytes # (A) 0.4 k/uL (0-1.0); Monocytes % (A) 5 %; Neutrophils # (A) 4.9 k/uL (1.3-7.7); Neutrophils % (A) 64 %; Platelet Count 221 k/uL (150-450); RBC 4.66 m/uL (4.30-5.90); RDW 12.8 % (11.5-15.5); WBC 7.7 k/uL (3.8-10.6)
[2018-04-09 07:28] VITALS: BP 100/63; PULSE 58; TEMP 97.2
[2018-04-09 07:34] LABS: ALT 27 U/L (21-72); AST 17 U/L (17-59); Albumin 3.5 g/dL (3.5-5.0); Alkaline Phosphatase 46 U/L (38-126); Anion Gap 13 mmol/L; Blood Urea Nitrogen 12 mg/dL (9-20); Calcium 8.5 mg/dL (8.4-10.2); Carbon Dioxide 22 mmol/L (22-30); Chloride 105 mmol/L (98-107); Glucose 82 mg/dL (74-99); Potassium 3.9 mmol/L (3.5-5.1); Sodium 140 mmol/L (137-145); Total Bilirubin 1.2 mg/dL (0.2-1.3); Total Protein 5.7 g/dL (6.3-8.2)
--- NOTE | 2018-04-09 08:57 | P.DS ---
Providers Date of admission: 04/08/18 16:32 Attending physician: Beny Jauregui DO Primary care physician: Stated None - Discharge Diagnosis(es) (1) Acute appendicitis Current Visit: Yes Status: Acute Hospital Course: Postoperatively, the patient was sent to the floor. Pain was well-controlled and the patient began having bowel function with flatus. Diet was advanced from clear liquid diet to soft diet and the patient was tolerating this. Postoperative laboratory values were also reviewed and the patient was noted to not have a leukocytosis or left shift. The patient states that pain is well- controlled and he is ambulating. He is having urinary function is well. Procedures: Laparoscopic appendectomy Patient Condition at Discharge: Stable Plan - Discharge Summary Discharge Rx Participant: Yes New Discharge Prescriptions: New Docusate [Colace] 100 mg PO BID #20 capsule Hydrocodone/Acetaminophen [[place] 5-325] 1 tab PO Q6HR PRN 3 Days #12 tab PRN Reason: Pain No Action Sennosides [Ex-Lax] 15 mg PO HS PRN PRN Reason: Constipation Discharge Medication List Sennosides [Ex-Lax] 15 mg PO HS PRN 04/08/18 [History] Docusate [Colace] 100 mg PO BID #20 capsule 04/09/18 [Rx] Hydrocodone/Acetaminophen [[place] 5-325] 1 tab PO Q6HR PRN 3 Days #12 tab [Rx] Follow up Appointment(s)/Referral(s): Beny Jauregui DO [Doctor of Osteopathic Medicine] - 10 Days Patient Instructions/Handouts: Laparoscopic Appendectomy (DC) Activity/Diet/Wound Care/Special Instructions: Okay to shower, do not scrub soap on wounds Continue to increase activity as tolerated every day No lifting greater than 20 pounds until cleared by physician Pain medication has been given to you, take as needed for pain. Narcotics can cause constipation, stool softeners have been sent here pharmacy for that reason. Follow-up with her surgeon in approximately 10 days. Discharge Disposition: HOME SELF-CARE
[2018-04-09] MEDS ORDERED: PANTOPRAZOLE 40 MG/10 ML VIAL IV SCH (09:00)
[2018-04-09] MEDS: PIPERACILLIN-TAZOBACTAM 3.375 GM in DEXTROSE/WATER 1 50ML.BAG IVPB SCH (09:43)
[2018-04-09] MEDS: HEPARIN SODIUM,PORCINE 5,000 UNIT/ML 1 ML VIAL SQ SCH (09:43)
[2018-04-09] MEDS: SODIUM CHLORIDE 0.9% 1,000 ML IV SCH (09:44)
== END 2018-04-09 11:34 | disposition home or self-care (01) ==
LOC: EC 13:57 → 3SUR 16:32
PROVIDERS: ADMIT Surgery; ATTEND Surgery
DX: K35.3 Acute appendicitis with localized peritonitis (principal)
CPT/HCPCS: 44970; 99285; 96360; 36415; 88304; 80053 ×2; 82150; 83605; 83690; 85025 ×2; 81001; 74018; 74177; G0378 ×2; J2250; J1644 ×2; J2710; J2001; J0696; J3010; J1885 ×2; J2543 ×2; J0690; J2795; J0330; J2704; C9113; Q9967